=== PATIENT | female | born 1995 | race Two or more races ===

== ENCOUNTER 2016-06-15 19:41 | Emergency (ER) | payer OTHER ==
[~2016-06-15] VITALS: Ht 152.4 cm; Wt 45.0 kg
[2016-06-15 19:43] VITALS: BP 98/60; PULSE 103; RESP 16; TEMP 98.3; O2SAT 99
--- NOTE | 2016-06-15 19:49 | PD ---
Physical Exam Time Seen by Provider: 19:47 Narrative 20 y/o female with 2 days of dysuria, some hematuria noted today. Denies flank pain, abd pain, vaginal bleeding, dicharrge. VSS seen at triage desk. Awaiting bed placement. Data Data Last Documented VS Vital Signs Date Time Temp Pulse Resp B/P Pulse Ox O2 Delivery O2 Flow Rate FiO2 06/15/16 19:51 16 06/15/16 19:43 98.3 103 98/60 99 Orders Urinalysis - C+S If Indicated (06/15/16 19:49) Ed Urine Pregnancytest Poc (06/15/16 19:49) Urine Culture (06/15/16 19:54) Nitrofurantoin Monohyd Macrocr (Macrobid (06/15/16 21:45) Labs Laboratory Tests Test 06/15/16 19:54 Urine Color YELLOW Urine Turbidity CLOUDY Urine pH 6.0 Urine Specific [place] 1.017 Urine Protein 100 mg/dL Urine Glucose (UA) NEG mg/dL Urine Ketones NEG mg/dL Urine Occult Blood MOD Urine Nitrite NEG Urine Bilirubin NEG Urine Urobilinogen LESS THAN 2.0 MG/DL Urine Leukocyte Esterase LARGE Urine RBC /hpf Urine WBC /hpf Urine Squamous Epithelial 1 /hpf Cells Urine Transitional Epithelial 2 /hpf Cells Urine Bacteria MOD /hpf Urine Mucus FEW /lpf Microscopic Urinalysis Comment CULTURE INDICATED MDM Medical Record Reviewed: Yes Supervised Visit with SNOW: Yes Scripts Nitrofurantoin Monohydrate Macrocrystals (Macrobid)100 Mg [id number] Mg PO BID 7 Days Ref 0 Prov:Elvira Garza DO 06/15/16 Mich Schultz Jun 15, 2016 19:49
[2016-06-15] MEDS ORDERED: MESA250 PO (19:50)
[2016-06-15 20:13] LABS: BACTERIA, URINE MOD /hpf; BLOOD, URINE MOD (NEG); COMMENT (UR) CULTURE INDICATED; CULTURE IF INDICATED CULTURE INDICATED; GLUCOSE,URINE NEG (NEG); KETONE, URINE NEG (NEG); MUCUS URINE FEW /lpf (OCC); NITRITE,URINE NEG (NEG); SQUAMOUS EPITHELIAL CELL URINE 1 /hpf (0-5); TRANSITIONAL EPI CELLS, URINE 2 /hpf; URINE COLOR YELLOW (YELLW/STRAW)
[2016-06-15] MEDS ORDERED: MACR100C2 PO (21:37)
--- NOTE | 2016-06-15 21:42 | PD ---
HPI Chief Complaint: Complaint Time Seen by Provider: 19:47 Travel History International Travel<30 days: No Contact w/Intl Traveler<30days: No Traveled to known affect area: No History of Present Illness HPI 20-year-old female presents for evaluation of dysuria. Symptoms started 2 days ago. Burning sensation when she urinates. Associated small amount of hematuria today. Denies nausea, vomiting, vaginal bleeding or discharge, flank pain, fevers or chills. She has no other complaints at this time. PFSH Past Medical History Autoimmune Disease: Yes (CROHN'S) Diminished Hearing: No Tetanus Vaccination: Unknown Influenza Vaccination: No ?: Not LMP: 1.5 WEEKS AGO Past Surgical History Surgical History: No Previous Surgery Social History Alcohol Use: No Tobacco Use: No Substance Use: No Allergies-Medications (Allergen,Severity, Reaction): Coded Allergies: Latex (Verified Allergy, Intermediate, 06/15/16) Reported Meds & Prescriptions Reported Meds & Active Scripts Active Macrobid (Nitrofurantoin Monoh/Nitrofur Macro) 100 Mg Cap 100 Mg PO BID 7 Days Reported Pentasa (Mesalamine) 250 Mg Caper 1,000 Mg PO QID Review of Systems Except as stated in HPI: all other systems reviewed are Neg Physical Exam Narrative GENERAL: Well-developed well-nourished female in no acute distress SKIN: Warm and dry. HEAD: Atraumatic. Normocephalic. EYES: Pupils equal and round. No scleral icterus. No injection or drainage. ENT: No nasal bleeding or discharge. Mucous membranes pink and moist. NECK: Trachea midline. No JVD. CARDIOVASCULAR: Regular rate and rhythm. No murmur appreciated. RESPIRATORY: No accessory muscle use. Clear to auscultation. Breath sounds equal bilaterally. GASTROINTESTINAL: Abdomen soft, non-tender, nondistended. Hepatic and splenic margins not palpable. Data Data Last Documented VS Vital Signs Date Time Temp Pulse Resp B/P Pulse Ox O2 Delivery O2 Flow Rate FiO2 06/15/16 19:51 16 06/15/16 19:43 98.3 103 98/60 99 Orders Urinalysis - C+S If Indicated (06/15/16 19:49) Ed Urine Pregnancytest Poc (06/15/16 19:49) Urine Culture (06/15/16 19:54) Nitrofurantoin Monohyd Macrocr (Macrobid (06/15/16 21:45) Labs Laboratory Tests Test 06/15/16 19:54 Urine Color YELLOW Urine Turbidity CLOUDY Urine pH 6.0 Urine Specific [place] 1.017 Urine Protein 100 mg/dL Urine Glucose (UA) NEG mg/dL Urine Ketones NEG mg/dL Urine Occult Blood MOD Urine Nitrite NEG Urine Bilirubin NEG Urine Urobilinogen LESS THAN 2.0 MG/DL Urine Leukocyte Esterase LARGE Urine RBC /hpf Urine WBC /hpf Urine Squamous Epithelial 1 /hpf Cells Urine Transitional Epithelial 2 /hpf Cells Urine Bacteria MOD /hpf Urine Mucus FEW /lpf Microscopic Urinalysis Comment CULTURE INDICATED MDM Medical Decision Making Medical Screen Exam Complete: Yes Emergency Medical Condition: Yes Medical Record Reviewed: Yes Differential Diagnosis Cystitis, urethritis, pyelonephritis, overactive bladder syndrome Narrative Course Urine test is negative. Urinalysis is consistent with cystitis. She is being treated empirically with Macrobid. She is stable for discharge. Diagnosis Primary Impression: Cystitis Additional Instructions: Antibiotic as prescribed. Stay well hydrated well-nourished. Return for any emergent medical conditions. Med/Other Pt SpecificInfo: Prescription(s) given Scripts Nitrofurantoin Monohydrate Macrocrystals (Macrobid)100 Mg [id number] Mg PO BID 7 Days Ref 0 Prov:Elvira Garza DO 06/15/16 Disposition: 01 DISCHARGE HOME Condition: Stable Mich Schultz Jun 15, 2016 21:42
[2016-06-15] MEDS ORDERED: NITROFURANTOIN MONOHYD MACROCR 100 MG CAP PO ONE (21:45)
== END 2016-06-15 22:02 | disposition home or self-care (01) ==
LOC: NEPK 19:41
DX: N30.90 Cystitis, unspecified without hematuria (principal); R31.9 Hematuria, unspecified
CPT/HCPCS: 81001; 84703; 87086; 99283